=== PATIENT | female | born 1945 | race Caucasian/White ===

== ENCOUNTER → 2016-09-26 | Outpatient (CLI) | payer OTHER ==
--- NOTE | 2016-09-26 16:24 | MAMMOGRAPHY REPORT ---
BILATERAL DIGITAL SCREENING MAMMOGRAM WITH CAD: 09/26/2016 CLINICAL HISTORY: Routine screening. Patient has no complaints. TECHNIQUE: Bilateral CC and MLO views were obtained. Current study was also evaluated with a Comput er Aided Detection (CAD) system. COMPARISON: Comparison is made to exams dated: 09/14/2015 mammogram, 09/09/2014 mammogram - [facility], 03/25/2012 mammogram, 08/23/2011 mammogram, and 07/09/2010 mammogram. BREAST COMPOSITION: The tissue of both breasts is heterogeneously dense, which may obscure small ma sses. FINDINGS: There are a few scattered benign-appearing calcifications in the left breast, and stable g roupings of microcalcifications in the 12:00 left breast, and central right breast, that are unchang ed in appearance dating back to at least 2011, therefore likely benign. No new suspicious mass, arc hitectural distortion or cluster of microcalcifications is seen. IMPRESSION: ACR BI-RADS CATEGORY 1: NEGATIVE There is no mammographic evidence of malignancy. A 1 year screening mammogram is recommended. The p atient will receive written notification of the results. Approximately 10% of breast cancers are not detected with mammography. A negative mammographic repor t should not delay biopsy if a clinically suggestive mass is present. Kristen Moon M.D. ay/:09/26/2016 15:12:37 Production Statistical Clerk: Bhanu BRANDON)(Terri), [facility] letter sent: Normal 1/2 BI-RADS Code: ACR BI-RADS Category 1: Negative
== END | disposition home or self-care (01) ==
LOC: C.MAMM 12:57
PROVIDERS: ATTEND Family Medicine
DX: Z12.31 Encounter for screening mammogram for malignant neoplasm of breast (principal); M81.0 Age-related osteoporosis without current pathological fracture

== ENCOUNTER → 2017-04-27 | Outpatient (CLI) | payer OTHER ==
[2017-04-27 12:50] LABS: BLOOD UREA NITROGEN 23 mg/dl (7-18); BUN/CREATININE RATIO 29.8 (10-20); CALCIUM 9.6 mg/dl (8.5-10.1); CARBON DIOXIDE 30 mmol/L (21-32); CHLORIDE 102 mmol/L (98-107); CREATININE 0.77 mg/dl (0.60-1.20); GLUCOSE 94 mg/dl (70-99); POTASSIUM 4.7 mmol/L (3.5-5.1); SODIUM 137 mmol/L (136-145)
[2017-04-27 12:53] LABS: CHOLESTEROL 203 mg/dl (0-200); CHOLESTEROL/HDL RATIO 2.5; HDL CHOLESTEROL 81 mg/dl; LDL CHOLESTEROL CALCULATED 105 mg/dl; TRIGLYCERIDES 84 mg/dl (0-150); VERY LOW DENSITY LIPOPROT CALC 17 mg/dl
[2017-04-27 13:24] LABS: CALCIUM URINE 6.1 mg/dl
[2017-04-28 14:50] LABS: ALBUMIN 4.6 G/DL (3.8-4.8); GAMMA GLOBULIN 0.9 G/DL (0.8-1.7); TOTAL PROTEIN 7.3 G/DL (6.2-8.3)
== END | disposition home or self-care (01) ==
LOC: C.LABMFLN 09:37
PROVIDERS: ATTEND Family Medicine
DX: M81.0 Age-related osteoporosis without current pathological fracture (principal); K90.0 Celiac disease; E61.8 Deficiency of other specified nutrient elements; E55.9 Vitamin D deficiency, unspecified; I10 Essential (primary) hypertension

== ENCOUNTER → 2017-09-28 | Outpatient (CLI) | payer OTHER ==
--- NOTE | 2017-10-02 08:08 | MAMMOGRAPHY REPORT ---
BILATERAL DIGITAL SCREENING MAMMOGRAM TOMOSYNTHESIS WITH CAD: 09/28/2017 CLINICAL HISTORY: Routine screening. Patient has no complaints. TECHNIQUE: Breast tomosynthesis in addition to standard 2D mammography was performed. Current study was also evaluated with a Computer Aided Detection (CAD) system. COMPARISON: Comparison is made to exams dated: 09/26/2016 mammogram, 09/14/2015 mammogram, 09/09/2014 ma mmogram - , 03/25/2012 mammogram, 08/23/2011 mammogram, and 07/09/2010 mamm ogram. BREAST COMPOSITION: The tissue of both breasts is heterogeneously dense, which may obscure small mas ses. FINDINGS: No suspicious masses, calcifications, or areas of architectural distortion are noted in ei ther breast. There has been no significant interval change compared to prior exams. Bilateral benign -appearing calcifications are not significantly changed. IMPRESSION: ACR BI-RADS CATEGORY 2: BENIGN There is no mammographic evidence of malignancy. A 1 year screening mammogram is recommended. The pa tient will receive written notification of the results. Approximately 10% of breast cancers are not detected with mammography. A negative mammographic report should not delay biopsy if a clinically suggestive mass is present. Enid Noguera M.D. /:09/28/2017 14:57:37 Time Stamp Assembler: Ni BRANDON)(Terri), letter sent: Normal 1/2 BI-RADS Code: ACR BI-RADS Category 2: Benign
== END | disposition home or self-care (01) ==
LOC: C.MAMM 09:41
PROVIDERS: ATTEND Family Medicine
DX: Z12.31 Encounter for screening mammogram for malignant neoplasm of breast (principal)

== ENCOUNTER → 2018-01-18 | Outpatient (CLI) | payer OTHER ==
[2018-01-18 13:19] LABS: URIC ACID 4.1 mg/dl (2.6-7.2)
[2018-01-22 04:35] LABS: PARVOVIRUS IgM INDEX 0.2 (<0.9)
== END | disposition home or self-care (01) ==
LOC: C.LABMFLN 10:41
PROVIDERS: ATTEND Internal Medicine Rheumatology
DX: M25.549 Pain in joints of unspecified hand (principal)

== ENCOUNTER 2024-07-27 17:17 | Inpatient (IN) ==
[2024-07-27 18:08] LABS: Basophils # (auto) 0.03 K/uL (0.00-0.20); Basophils % (auto) 0.3 %; Eosinophils # (auto) 0.03 K/uL (0.00-0.50); Eosinophils % (auto) 0.3 %; Hematocrit (blood only) 37.1 % (37.0-47.0); Hemoglobin 12.6 g/dl (12.0-16.0); Immature Granulocytes # (auto) 0.03 K/uL (0.01-0.20); Immature Granulocytes % (auto) 0.3 %; Lymphocytes # (auto) 1.85 K/uL (1.20-3.40); Lymphocytes % (auto) 16.1 %; Mean Corpuscular Hemoglobin 31.3 pg (25.0-34.0); Mean Corpuscular Volume 92.3 fL (80.0-100.0); Mean Platelet Volume 9.3 fL (9.4-12.4); Monocytes # (auto) 1.31 K/uL (0.11-0.59); Monocytes % (auto) 11.4 %; Neutrophils # (auto) 8.24 K/uL (1.40-6.50); Neutrophils % (auto) 71.6 %; Platelet Count 394 K/uL (130-400); RDW Coefficient of Variation 11.8 % (11.5-14.5); Red Blood Count 4.02 M/uL (4.20-5.40); White Blood Count 11.49 K/ul (4.8-10.8)
[2024-07-27 18:19] LABS: Partial Thromboplastin Ratio 1.1; Partial Thromboplastin Time 29 Seconds (21-31)
--- NOTE | 2024-07-27 18:27 | Emergency Department Note ---
Impression & Plan Pulmonary embolism, Left-sided chest pain, Pleural effusion ED Provider Note NAME: LEVI BHAGAT AGE: 78 SEX: Female INFORMANT: Patient ED PROVIDER(S): Mio Pennington MD CHIEF COMPLAINT: Left rib pain PLAN: Disposition: Admit Outpatient prescription management: none Referral: None MEDICAL DECISION MAKING: Patient presented because of left sided rib pain. No trauma. She had a benign abdominal examination. Workup was initiated. Twelve-lead ECG reveals a sinus rhythm without ischemia. Patient had mild leukocytosis. Chemistry panel was unremarkable. Troponin negative. Patient underwent CT imaging of the chest after chest x-ray revealed left-sided effusion. CT imaging was concerning for effusion as well as pulmonary embolism per radiology. Atelectasis was also noted. Patient noted more pain after initially declining analgesia. Hypercoagulability labs were ordered. Patient was treated with Zofran and Dilaudid. She had transient dip in her blood pressure but felt much better and that resolved on reassessment. Consultation was made with Dr. Calderon Li of the [facility] service. Patient was evaluated in the ER for further management. We did discuss anticoagulation and he did request heparin. This was ordered. Care/management discussed with: healthcare project manager Level of care consideration(s): After review of the information above and other included data, I feel the patient requires escalation of care to admission Triage Nursing notes: reviewed and agree them. Vital Signs: reviewed and remarkable for no significant abnormalities Additional History obtained from: none Chronic Medical/Social Conditions affecting care: none Prior/ Outside/ External records reviewed: none Differential Diagnosis: Pleurisy, pneumonia, PE ardiac ischemia, aortic dissection, pneumothorax, pericarditis, myocarditis, esophageal rupture, GERD, cholecystitis, pancreatitis, musculoskeletal, as well as other pathologies. Diagnostics, independently interpreted by me: ECG: Twelve-lead ECG reveals a sinus rhythm with PACs at [address] No ST elevation or depression. Cardiac Monitoring: Cardiac monitoring ordered by me: The patient was placed on continuous cardiac monitoring and observed. It revealed a normal sinus rhythm at 79 bpm. Medical decision rules: none Imaging studies: Chest x-ray and CT scan as above. Effusion and pulmonary embolism. HPI: 78 year old Female arrives for evaluation of pain behind her left anterior ribs. This started 4 days ago and is persisting. Patient notes pain does get up to 9 out of 10 and is worse with taking a deep breath. Does note some pain with movement. Pain does radiate towards the left shoulder. The patient also notes the following associated symptoms, mild shortness of breath. The patient has found no relieving factors. Current pain is rated as 9/10. Patient declined analgesia. Pt denies LOC, headache, fevers, chills, diaphoresis, visual changes, neck pain, nausea, vomiting, flank pain, right sided or lower abdominal pain, back pain, melena, hematochezia, urinary symptoms, numbness, weakness, lymphadenopathy, rash, or other complaints.. PAST MEDICAL HISTORY: See Below, celiac PAST SURGICAL HISTORY: See Below, SOCIAL HISTORY: See Below, HOME MEDICATIONS: See Below ALLERGIES: See Below VITALS: See Below PHYSICAL EXAMINATION: GENERAL: Awake, alert, uncomfortable-appearing, in no distress HENT: Normocephalic, atraumatic. Oropharynx unremarkable. EYES: Normal conjunctiva. Sclera non-icteric. NECK: Inspection normal. Non-tender. Supple. No nuchal rigidity. FROM. No masses. RESPIRATORY: Clear to auscultation. No wheezes. No rales. Normal respiratory effort. CARDIAC: Normal rate. Normal rhythm. No murmurs. No rubs. Extremities warm and well perfused. Pulses equal. No JVD. GI: Soft, non-distended. No tenderness to palpation. No rebound or guarding. No masses. RECTAL: Deferred. MUSCULOSKELETAL: Atraumatic. Chest examination reveals no tenderness. The back is symmetrical on inspection without obvious abnormality. There is no CVA tenderness to palpation. No joint edema. LOWER EXTREMITIES: Calves are equal size bilaterally and non-tender. Trace edema. No discoloration. NEURO: Normal sensorium. No sensory or motor deficits noted. SKIN: No rash or jaundice noted. PROCEDURES: none CRITICAL CARE: I have personally spent 40 minutes of critical care time in the direct management of this patient. This includes bedside care, interpretation of diagnostic studies, and testing, discussion with consultants, patient, and family members, and other required patient management activities. These minutes are in excess of all separately billable procedures. OBSERVATION NOTE: none Past Med/Surg History Problem List (Updated 07/28/24 @ 02:46 by Mio Pennington MD) Pleural effusion (Acute) Pulmonary embolism (Acute) Pulmonary embolism Pleural effusion Left-sided chest pain (Acute) Hyponatremia Left ear hearing loss Otalgia, left ear Neutropenia Hypercalcemia Osteoporosis Medicare annual wellness visit, subsequent Vitamin D insufficiency Chronic cough Dyspnea Close exposure to COVID-19 virus Intermittent palpitations Intermittent palpitations Vitamin D deficiency (Acute) Osteoporosis (Acute) Chronic back pain (Acute) Celiac disease (Acute) Barretts esophagus (Acute) Benign essential hypertension (Acute) Atopic dermatitis (Acute) Dyslipidemia Osteoarthritis of thumb (Acute) Uterine fibroid (Acute) Medical History No pertinent past medical history Surgical History History of tonsillectomy and adenoidectomy Family History Other No pertinent family history Social History Smoking Status: Never smoker Hx Alcohol Use: No Hx Substance Use: No Preferred Language: French Visual Impairment: Limited Hearing Ability: Normal marital status: Current Living Situation: Spouse current occupational status: retired How many Children do You have: 2 Feels Safe at Home: Yes Childhood Exposure to Second-Hand Smoke: Yes Diet: gluten free caffeine: Yes Dental Care, Regularly: Yes Physical Activity Frequency: 3-4 Times per Week Physical Activity Frequency Comment: walking Seatbelt Use: always Sunscreen Use: No Allergies Allergies Allergy/AdvReac Type Severity Reaction Status Date / Time amoxicillin Allergy Verified 04/29/24 09:59 hydrochlorothiazide AdvReac Intermediate Hyponatremi Verified 05/20/24 16:55 a Home Meds Home Medications Medication Instructions Recorded Confirmed cholecalciferol (vitamin D3) 50 2,000 units PO DAILY #30 tabs 02/01/19 07/27/24 mcg (2,000 unit) tablet vitamins A,C,V-tjlf-ftdtqh 4,296 1 cap PO BID 02/01/19 07/27/24 mcg-226 mg-90 mg capsule (PreserVision AREDS) multivitamin (Daily Multi-Vitamin 1 tab PO DAILY 04/23/20 07/27/24 tablet) acetaminophen 650 mg 1,300 mg PO HS PRN Pain 07/09/20 07/27/24 tablet,extended release tramadol 50 mg tablet 50 mg PO TID PRN Pain 04/26/23 07/27/24 Previous Rx's Medication Instructions Recorded estradiol 10 mcg vaginal insert 10 mcg vaginal .COMPLEX #24 inserts 06/13/23 triamcinolone acetonide 0.1 % 1 applic topical BID PRN atopic 08/28/23 topical cream dermatitis #30 grams losartan 100 mg tablet 100 mg PO DAILY #90 tabs 02/23/24 pantoprazole 20 mg tablet,delayed 20 mg PO DAILY #90 tabs 05/08/24 release metoprolol tartrate 50 mg tablet 50 mg PO BID #180 tabs 05/22/24 hydrochlorothiazide 12.5 mg tablet 12.5 mg PO QAM #30 tabs 07/02/24 Results & Data (ED) Vital Signs Vital Signs - 24 hr 07/27/24 17:25 07/27/24 18:44 07/27/24 18:44 Temperature 36.9 C Temperature Source Temporal Artery Scan Pulse Rate 79 74 Pulse Rate [Apical] 67 Pulse Rate from SpO2 Sensor Respiratory Rate 18 18 Respiratory Effort / Characteristics Non-Labored Non-Labored Spontaneous Respiratory Depth Normal Normal Respiratory Pattern Regular Blood Pressure 172/90 H Blood Pressure [Right Arm] 118/69 Blood Pressure Mean 117 Blood Pressure Mean [Right Arm] 85 Pulse Oximetry 96 96 Oxygen Delivery Method Room Air Room Air Sepsis Recent Fever Within 48 Hours No Sepsis New/Unexplained Change in Mental Status No Sepsis Action Taken by Nursing No Action Required 07/27/24 18:47 07/27/24 19:17 07/27/24 19:42 Temperature Temperature Source Pulse Rate 75 82 Pulse Rate [Apical] 80 Pulse Rate from SpO2 Sensor 76 76 Respiratory Rate 28 H 24 24 Respiratory Effort / Characteristics Respiratory Depth Respiratory Pattern Blood Pressure 159/81 H 151/91 H Blood Pressure [Right Arm] 158/79 H Blood Pressure Mean 107 111 Blood Pressure Mean [Right Arm] 105 Pulse Oximetry 97 93 94 Oxygen Delivery Method Room Air Sepsis Recent Fever Within 48 Hours Sepsis New/Unexplained Change in Mental Status Sepsis Action Taken by Nursing 07/27/24 19:42 07/27/24 19:48 07/27/24 20:03 Temperature Temperature Source Pulse Rate 78 77 Pulse Rate [Apical] Pulse Rate from SpO2 Sensor 79 78 Respiratory Rate 20 24 Respiratory Effort / Characteristics Respiratory Depth Respiratory Pattern Blood Pressure 158/79 H 161/89 H Blood Pressure [Right Arm] Blood Pressure Mean 105 113 Blood Pressure Mean [Right Arm] Pulse Oximetry 95 94 Oxygen Delivery Method Room Air Sepsis Recent Fever Within 48 Hours Sepsis New/Unexplained Change in Mental Status Sepsis Action Taken by Nursing 07/27/24 20:32 07/27/24 20:42 07/27/24 21:03 Temperature Temperature Source Pulse Rate 64 72 71 Pulse Rate [Apical] Pulse Rate from SpO2 Sensor 71 73 Respiratory Rate 19 28 H 24 Respiratory Effort / Characteristics Respiratory Depth Respiratory Pattern Blood Pressure 88/48 L 105/59 L 125/69 Blood Pressure [Right Arm] Blood Pressure Mean 58 74 87 Blood Pressure Mean [Right Arm] Pulse Oximetry 94 96 98 Oxygen Delivery Method Sepsis Recent Fever Within 48 Hours Sepsis New/Unexplained Change in Mental Status Sepsis Action Taken by Nursing Laboratory Data 07/27/24 17:50 07/27/24 17:50 Lab Results 07/27/24 07/27/24 Range/Units 17:50 18:40 WBC 11.49 H (4.8-10.8) K/ul RBC 4.02 L (4.20-5.40) M/uL Hgb 12.6 (12.0-16.0) g/dl Hct 37.1 (37.0-47.0) % MCV 92.3 (80.0-100.0) fL MCH 31.3 (25.0-34.0) pg MCHC 34.0 (32.0-36.0) g/dL RDW Std Deviation 40.0 (36.4-46.3) fL RDW Coeff of Alina 11.8 (11.5-14.5) % Plt Count 394 (130-400) K/uL MPV 9.3 L (9.4-12.4) fL Immature Gran % (Auto) 0.3 % Neut % (Auto) 71.6 % Lymph % (Auto) 16.1 % [place] % (Auto) 11.4 % Eos % (Auto) 0.3 % Baso % (Auto) 0.3 % Neut # (Auto) 8.24 H (1.40-6.50) K/uL Lymph # (Auto) 1.85 (1.20-3.40) K/uL [place] # (Auto) 1.31 H (0.11-0.59) K/uL Eos # (Auto) 0.03 (0.00-0.50) K/uL Baso # (Auto) 0.03 (0.00-0.20) K/uL Immature Gran # (Auto) 0.03 (0.01-0.20) K/uL APTT 29 (21-31) Seconds PTT Ratio 1.1 Sodium 127 L (136-145) mmol/L Potassium 4.3 (3.5-5.1) mmol/L Chloride 92 L (98-107) mmol/L Carbon Dioxide 26 (21-32) mmol/L Anion Gap 9 (3-11) BUN 15 (6-23) mg/dl Creatinine 0.65 (0.6-1.2) mg/dl Est Cr Clr Drug Dosing 61.0 ml/min eGFR 91.19 BUN/Creatinine Ratio 23.1 H (10-20) Glucose 110 H (70-99(Fasting)) mg/dl Calcium 10.1 (8.6-10.3) mg/dl Total Bilirubin 0.6 (0.2-1.0) mg/dl AST 17 (13-39) U/L ALT 14 (7-52) U/L Alkaline Phosphatase 86 (34-104) U/L Troponin I High Sens 6.7 (0-14) pg/ml Total Protein 8.0 (6.0-8.3) gm/dl Albumin 4.6 (3.4-5.0) gm/dl Globulin 3.4 (2.5-4.0) gm/dl Albumin/Globulin Ratio 1.4 (0.9-2) Urine Color Yellow Urine Appearance Clear (Clear) Urine pH 7.0 (4.5-7.5) Ur Specific Sixes 1.015 (1.000-1.030) Urine Protein Negative (Negative) Urine Glucose (UA) Negative (Negative) Urine Ketones 1+ H (Negative) Urine Blood Negative (Negative) Urine Nitrite Negative (Negative) Urine Bilirubin Negative (Negative) Urine Urobilinogen Negative (Negative) Ur Leukocyte Esterase 1+ H (Negative) Urine WBC (Auto) 0-5 (0-5) /hpf Urine RBC (Auto) 0-2 (0-2) /hpf U Hyaline Cast (Auto) 0-2 (0-2) /lpf U Epithel Cells (Auto) 0-2 (0-2) /hpf Urine Bacteria (Auto) None Seen (None Seen) Administered Medications Heparin Sodium/Dextrose (Heparin 63753 Unit/500 Ml D5w) 25,000 units in 500 mls @ 13 mls/hr IV .Q24H AKANKSHA; Protocol Stop: 08/26/24 20:44 Last Admin: 07/27/24 21:03 Dose: 650 units/hr, 13 mls/hr Documented By: FRANCISCA Co-signed By: MARGE Metoprolol Tartrate (Metoprolol Tartrate 50 Mg Tab) 50 mg PO BID AKANKSHA Stop: 08/27/24 01:12 Last Admin: 07/28/24 02:31 Dose: 50 mg Documented By: ISABEL Morphine Sulfate (Morphine Sulfate 2 Mg/Ml Carp) 1 mg IV Q3H PRN PRN Reason: Severe Pain (Scale 7, 8, 9,10) Stop: 08/10/24 21:08 Last Admin: 07/28/24 02:31 Dose: 1 mg Documented By: Admin: 07/27/24 22:24 Dose: 1 mg Documented By: FRANCISCA Multivitamins/Minerals (Cerovite Adv Formula Tab) 1 tab PO BID AKANKSHA Stop: 08/27/24 01:12 Last Admin: 07/28/24 02:31 Dose: Not Given Documented By: ISABEL Discontinued Medications Heparin Sodium (Porcine) (Heparin Sod (Porcine) 1000 Unit/Ml) 1 units IV NOW ONE Stop: 07/27/24 20:34 Last Admin: 07/27/24 21:02 Dose: 2,000 units Documented By: FRANCISCA Co-signed By: MARGE Heparin Sodium/Dextrose (Heparin Iv Adult Wt-Based Low-Dose W/ Initial Bolus Protocol) 1 each IV NOW STA; Protocol Stop: 07/27/24 20:18 Last Admin: 07/27/24 21:04 Dose: Not Given Documented By: FRANCISCA Hydromorphone HCl (Hydromorphone Inj 0.5 Mg/0.5 Ml Syr) 0.5 mg IV Q15M PRN PRN Reason: Pain Stop: 08/10/24 20:00 Last Admin: 07/27/24 20:14 Dose: 0.5 mg Documented By: FRANCISCA Sodium Chloride (Nss) 1,000 mls @ 999 mls/hr IV .Q1H1M ONE Stop: 07/27/24 21:32 Last Infusion: 07/27/24 22:54 Dose: Infused Documented By: Admin: 07/27/24 20:54 Dose: 999 mls/hr Documented By: FRANCISCA Ioversol (Optiray 320 125ml) 118 ml IV ONCE ONE Stop: 07/27/24 19:12 Last Admin: 07/27/24 19:11 Dose: 118 ml Documented By: OBED Lidocaine (Lidocaine 5% 1 Patch) 1 patch TD NOW STA Stop: 07/27/24 21:05 Last Admin: 07/27/24 22:24 Dose: 1 patch Documented By: FRANCISCA Metoprolol Tartrate (Metoprolol Tartrate 50 Mg Tab) 50 mg PO NOW STA Stop: 07/27/24 20:04 Last Admin: 07/27/24 20:18 Dose: 50 mg Documented By: FRANCISCA Ondansetron HCl (Ondansetron Inj 2 Mg/Ml 2 Ml Vial) 4 mg IV NOW STA Stop: 07/27/24 20:02 Last Admin: 07/27/24 20:14 Dose: 4 mg Documented By: FRANCISCA Pantoprazole Sodium (Pantoprazole 40 Mg Tab) 40 mg PO NOW STA Stop: 07/27/24 20:58 Last Admin: 07/27/24 22:23 Dose: 40 mg Documented By: FRANCISCA Imaging Data Radiologist's Impression: Chest X-Ray 07/27/24 17:31 EXAM: XR chest 1V portable CLINICAL HISTORY: Left chest pain TECHNIQUE: An X-ray image of the chest is obtained in AP projection. COMPARISON: prior 07/28/2021 FINDINGS: Pulmonary Parenchyma: left-sided moderate pleural effusion Heart and Mediastinum: Heart size and shape are normal. possible right-sided hilar opacity Bony Thorax: Bony thorax appears intact without fractures or deformities. Soft Tissues: Soft tissues overlying the chest wall are unremarkable. IMPRESSION: 1. left-sided moderate pleural effusion (newly developed) 2. possible right-sided hilar opacity (patient is rotated), possible vascular shadow however the possiblty of underlying masses can't be excluded. New 3. further assessment by CT is recommended Electronically signed by Sadia Cano 07-27-2024 7:32 PM Chest CTA 07/27/24 18:13 HISTORY: Left lower chest pain. TECHNIQUE: Helical CT angiography of the chest was performed following uneventful administration of 118 mL of Optiray 320 IV contrast. Images are presented in axial, sagittal, coronal reformats. Coronal and sagittal 3D MIP reconstructions are also provided. COMPARISON: None. FINDINGS: Study is of diagnostic quality for evaluation of the pulmonary arteries to the level of the segmental vessels. An acute segmental pulmonary embolism is seen involving the basal left lower lobe on series 2 image 53. No large or central PE is identified. Thoracic aorta is normal in caliber. No evidence of aortic dissection or acute aortic process. Mild atherosclerotic vascular disease. No coronary artery calcifications. Cardiomegaly. No significant pericardial effusion. Nonspecific mildly enlarged mediastinal and hilar lymph nodes may be reactive.. Included thyroid gland is unremarkable. Thoracic esophagus is unremarkable. The included upper abdomen is unremarkable. The soft tissues of the chest wall are unremarkable. Moderate layering left pleural effusion. Patchy airspace opacities involving the left greater than right lung base favoring atelectasis. No pneumothorax. Central tracheobronchial tree is patent. No acute osseous abnormality. IMPRESSION: 1. Positive for acute pulmonary embolism with an acute segmental PE to the basilar left lower lobe on series 4 image 104. No large or central PE. No right heart strain. 2. Moderate left pleural effusion. Patchy areas of airspace opacity involving left greater than right lung base may representcombination of pneumonia and atelectasis. Mildly enlarged mediastinal and hilar lymph nodes may be reactive. Follow-up chest CT with contrast is recommended in 1 to 2 months to evaluate for resolution. 3. Cardiomegaly. 4. Additional chronic and/or incidental findings as detailed above * Findings were discussed with the ordering provider Dr. Mio Mccartney via telephone at 7:35 PM. Electronically signed by Mio Garcia 07-27-2024 7:40 PM Venous Doppler Study 07/27/24 21:06 Exam(s): US VENOUS BILATERAL LOWER EXTREMITIES EXAM: US Duplex Bilateral Lower Extremities Veins CLINICAL HISTORY: Reason for exam: PE. TECHNIQUE: Real-time duplex ultrasound scan of the bilateral lower extremity veins integrating B-mode two-dimensional vascular structure, Doppler spectral analysis, color flow Doppler imaging and compression. COMPARISON: No relevant prior studies available. FINDINGS: Right deep veins: No DVT in the right common femoral, femoral, proximal deep femoral or popliteal veins. The veins demonstrate normal color flow, are normally compressible, with normal phasic flow and/or augmentation response. Right superficial veins: No thrombus in the visualized right great saphenous vein. Left deep veins: No DVT in the left common femoral, femoral, proximal deep femoral or popliteal veins. The veins demonstrate normal color flow, are normally compressible, with normal phasic flow and/or augmentation response. Left superficial veins: No thrombus in the visualized left great saphenous vein. Soft tissues: No acute findings. No popliteal cyst. IMPRESSION: No ultrasound evidence of deep venous thrombosis in the lower extremities. . Electronically signed by: Genaro Mejia MD 07/27/24 22:52 PM Discharge Plan Visit Data Chief Complaint: Abdominal Pain Stated Complaint: ABD PAIN, SOB, RAD UP TO NECK ED Provider: Mio Pennington Discharge Problem: Pulmonary embolism, Left-sided chest pain, Pleural effusion Discharge Instructions Interventions: ED Discharge Assessment Last Done: 07/28/24 01:14
[2024-07-27 18:33] LABS: Troponin I High Sensitivity 6.7 pg/ml (0-14)
[2024-07-27 18:46] LABS: Albumin Level 4.6 gm/dl (3.4-5.0); Bilirubin,Total 0.6 mg/dl (0.2-1.0); Calcium 10.1 mg/dl (8.6-10.3); Potassium 4.3 mmol/L (3.5-5.1)
[2024-07-27 18:52] LABS: Albumin Globulin Ratio 1.4 (0.9-2); BUN Creatinine Ratio 23.1 (10-20); Globulin 3.4 gm/dl (2.5-4.0)
[2024-07-27 19:08] LABS: Appearance Urine Clear (Clear); Bacteria Urine Automated None Seen (None Seen); Bilirubin Urine Negative (Negative); Blood Urine Negative (Negative); Cast Urine Automated 0-2 /lpf (0-2); Color Urine Yellow; Epithelial Cell Urine Auto 0-2 /hpf (0-2); Glucose Urine UA Negative (Negative); Ketones Urine 1+ (Negative); Leukocyte Esterase Urine 1+ (Negative); Nitrite Urine Negative (Negative); Protein Urine Negative (Negative); RBC Urine Automated 0-2 /hpf (0-2); Specific Gravity Urine 1.015 (1.000-1.030); Urobilinogen Urine Negative (Negative); WBC Urine Automated 0-5 /hpf (0-5)
[2024-07-27] MEDS: OPTIRAY 320 125ml IV ONE (19:11)
--- NOTE | 2024-07-27 19:32 | XRay Report ---
EXAM: XR chest 1V portable CLINICAL HISTORY: Left chest pain TECHNIQUE: An X-ray image of the chest is obtained in AP projection. COMPARISON: prior 07/28/2021 FINDINGS: Pulmonary Parenchyma: left-sided moderate pleural effusion Heart and Mediastinum: Heart size and shape are normal. possible right-sided hilar opacity Bony Thorax: Bony thorax appears intact without fractures or deformities. Soft Tissues: Soft tissues overlying the chest wall are unremarkable. IMPRESSION: 1. left-sided moderate pleural effusion (newly developed) 2. possible right-sided hilar opacity (patient is rotated), possible vascular shadow however the possiblty of underlying masses can't be excluded. New 3. further assessment by CT is recommended Electronically signed by Sadia Cano 07-27-2024 7:32 PM
--- NOTE | 2024-07-27 19:40 | CT Scan Report ---
HISTORY: Left lower chest pain. TECHNIQUE: Helical CT angiography of the chest was performed following uneventful administration of 118 mL of Optiray 320 IV contrast. Images are presented in axial, sagittal, coronal reformats. Coronal and sagittal 3D MIP reconstructions are also provided. COMPARISON: None. FINDINGS: Study is of diagnostic quality for evaluation of the pulmonary arteries to the level of the segmental vessels. An acute segmental pulmonary embolism is seen involving the basal left lower lobe on series 2 image 53. No large or central PE is identified. Thoracic aorta is normal in caliber. No evidence of aortic dissection or acute aortic process. Mild atherosclerotic vascular disease. No coronary artery calcifications. Cardiomegaly. No significant pericardial effusion. Nonspecific mildly enlarged mediastinal and hilar lymph nodes may be reactive.. Included thyroid gland is unremarkable. Thoracic esophagus is unremarkable. The included upper abdomen is unremarkable. The soft tissues of the chest wall are unremarkable. Moderate layering left pleural effusion. Patchy airspace opacities involving the left greater than right lung base favoring atelectasis. No pneumothorax. Central tracheobronchial tree is patent. No acute osseous abnormality. IMPRESSION: 1. Positive for acute pulmonary embolism with an acute segmental PE to the basilar left lower lobe on series 4 image 104. No large or central PE. No right heart strain. 2. Moderate left pleural effusion. Patchy areas of airspace opacity involving left greater than right lung base may representcombination of pneumonia and atelectasis. Mildly enlarged mediastinal and hilar lymph nodes may be reactive. Follow-up chest CT with contrast is recommended in 1 to 2 months to evaluate for resolution. 3. Cardiomegaly. 4. Additional chronic and/or incidental findings as detailed above * Findings were discussed with the ordering provider Dr. Mio Mccartney via telephone at 7:35 PM. Electronically signed by Mio Garcia 07-27-2024 7:40 PM
[2024-07-27] MEDS: HYDROmorphone INJ 0.5 MG/0.5 ML SYR IV PRN (20:14)
[2024-07-27] MEDS: ONDANSETRON INJ 2 MG/ML 2 ML VIAL IV STA (20:14)
[2024-07-27] MEDS: METOPROLOL TARTRATE 50 MG TAB PO STA (20:18)
[2024-07-27] MEDS: SODIUM CHLORIDE 0.9% 1,000 ML IV ONE (20:54)
[2024-07-27] MEDS: HEPARIN SOD (PORCINE) 1000 UNIT/ML IV ONE (21:02)
[2024-07-27] MEDS: HEPARIN 25000 UNIT/500 ML D5W 25,000 UNITS/500 ML BAG IV SCH (21:03)
[2024-07-27] MEDS: Heparin IV Adult Wt-Based Low-Dose w/ INITIAL Bolus Protocol IV STA (21:04)
--- NOTE | 2024-07-27 21:10 | History & Physical Report ---
Date of Service July 27, 2024 Assessment & Plan (1) Hyponatremia: (2) Pleural effusion: (3) Pulmonary embolism: (4) Left-sided chest pain: Plan The patient is a 78-year-old female with a past medical history including hyponatremia, vitamin D insufficiency, history of palpitations, Lewis's esophagus, celiac disease, benign essential hypertension, atopic dermatitis, dyslipidemia, thumb osteoarthritis, and uterine fibroid. The patient presents to the emergency department with complaint of 4 days of left anterior rib cage pain, worse with deep inspiration. She denies any recent travels, sick exposures. She does report that the pain periodically goes up into her left wes ulder. She had no previous occurrence of these types of symptoms. She presents to the emergency department this evening due to persistence and worsening of the pain. She denies any pain and/or swelling, in either leg. Workup in the emergency department included a chest x-ray suggestive of moderate left pleural effusion. CT angiography PE protocol was significant for left lower lobe pulmonary embolism. Patient is also referred to the [facility] for further evaluation and treatment. Of note, patient does report upon questioning, that her mother did have a clot when she was younger. #Pulmonary embolism left lower lobe- As noted on CTA PE protocol Hypercoagulable workup ordered, as patient reports a family history of her mother having had a clot at a young age. Patient reports that mammograms are up-to-date, assess colonoscopy Start heparin drip per protocol. Will continue heparin drip Until determine whether patient will get a thoracentesis to adjust pleural effusion If no thoracentesis planned, then patient can be converted to oral anticoagulation in the a.m. Lower extremity venous Doppler negative for DVT #Moderate pleural effusion left lower lobe- New compared to previous Patient is not a candidate for diuresis at this point May benefit from a thoracentesis Continue heparin drip for now, which can be stopped if anticipated thoracentesis #Pain management- Patient did receive Dilaudid 0.5 IV x 1 from the ED, and developed an acute drop of blood pressure to systolic 80, and became somewhat disoriented. Acetaminophen 650 mg by mouth every 6 hours as needed for mild pain or fever Patient presently takes tramadol 50 mg p.o. 3 times daily as needed. Will change to 50 mg every 4 hours as needed moderate pain Morphine sulfate 1 mg IV every 3 hours as needed for severe pain Started Lidoderm patch over lower rib cage area #Hyponatremia/intermittent cough/hypertension- It has been noted the patient she has been hyponatremic secondary to HCTZ Will hold HCTZ and follow sodium levels, with present level being 127, and range 127-132 Patient has had intermittent cough over the past number of months Will hold losartan She has been on amlodipine in the past, which caused her feet to swell. Her PCP has suggested felodipine 2.5 mg, which would be a good option. At this point, her blood pressure is reasonably good History of Present Illness Chief Complaint: The patient presents to the emergency department with complaint of 4 days of left anterior rib cage pain, worse with deep inspiration. She denies any recent travels, sick exposures. She does report that the pain periodically goes up into her left shoulder. She had no previous occurrence of these types of symptoms. She presents to the emergency department this evening due to persistence and worsening of the pain. She denies any pain and/or swelling, in either leg. Primary Care Provider: Yobani Sanders MD The patient is a 78-year-old female with a past medical history including hyponatremia, vitamin D insufficiency, history of palpitations, Lewis's esophagus, celiac disease, benign essential hypertension, atopic dermatitis, dyslipidemia, thumb osteoarthritis, and uterine fibroid. The patient presents to the emergency department with complaint of 4 days of left anterior rib cage pain, worse with deep inspiration. She denies any recent travels, sick exposures. She does report that the pain periodically goes up into her left shoulder. She had no previous occurrence of these types of symptoms. She presents to the emergency department this evening due to persistence and worsening of the pain. She denies any pain and/or swelling, in either leg. Workup in the emergency department included a chest x-ray suggestive of moderate left pleural effusion. CT angiography PE protocol was significant for left l ower lobe pulmonary embolism. Patient is also referred to the [facility] for further evaluation and treatment. Allergies Allergy/AdvReac Type Severity Reaction Status Date / Time amoxicillin Allergy Verified 04/29/24 09:59 hydrochlorothiazide AdvReac Intermediate Hyponatremi Verified 05/20/24 16:55 a Home Medications Medication Instructions Recorded Confirmed Type cholecalciferol (vitamin D3) 50 2,000 units PO DAILY #30 tabs 02/01/19 07/27/24 History mcg (2,000 unit) tablet vitamins A,C,Y-[id number]-[id number] 4,296 1 cap PO BID 02/01/19 07/27/24 History mcg-226 mg-90 mg capsule (PreserVision AREDS) multivitamin (Daily Multi-Vitamin 1 tab PO DAILY 04/23/20 07/27/24 History tablet) acetaminophen 650 mg 1,300 mg PO HS PRN Pain 07/09/20 07/27/24 History tablet,extended release tramadol 50 mg tablet 50 mg PO TID PRN Pain 04/26/23 07/27/24 History estradiol 10 mcg vaginal insert 10 mcg vaginal .COMPLEX #24 inserts 06/13/23 07/27/24 Rx triamcinolone acetonide 0.1 % 1 applic topical BID PRN atopic 08/28/23 07/27/24 Rx topical cream dermatitis #30 grams losartan 100 mg tablet 100 mg PO DAILY #90 tabs 02/23/24 07/27/24 Rx pantoprazole 20 mg tablet,delayed 20 mg PO DAILY #90 tabs 05/08/24 07/27/24 Rx release metoprolol tartrate 50 mg tablet 50 mg PO BID #180 tabs 05/22/24 07/27/24 Rx hydrochlorothiazide 12.5 mg tablet 12.5 mg PO QAM #30 tabs 07/02/24 07/27/24 Rx Past Med/Surg History Problem List (Updated 07/28/24 @ 00:56 by Calderon Li MD) Pulmonary embolism Pleural effusion Left-sided chest pain (Acute) Hyponatremia Left ear hearing loss Otalgia, left ear Neutropenia Hypercalcemia Osteoporosis Medicare annual wellness visit, subsequent Vitamin D insufficiency Chronic cough Dyspnea Close exposure to COVID-19 virus Intermittent palpitations Intermittent palpitations Vitamin D deficiency (Acute) Osteoporosis (Acute) Chronic back pain (Acute) Celiac disease (Acute) Barretts esophagus (Acute) Benign essential hypertension (Acute) Atopic dermatitis (Acute) Dyslipidemia Osteoarthritis of thumb (Acute) Uterine fibroid (Acute) Medical History No pertinent past medical history Surgical History History of tonsillectomy and adenoidectomy Family History Other No pertinent family history Social History Smoking Status: Never smoker Hx Alcohol Use: No Hx Substance Use: No Preferred Language: Turkmen Visual Impairment: Limited Hearing Ability: Normal marital status: Current Living Situation: Spouse current occupational status: retired How many Children do You have: 2 Feels Safe at Home: Yes Childhood Exposure to Second-Hand Smoke: Yes Diet: gluten free caffeine: Yes Dental Care, Regularly: Yes Physical Activity Frequency: 3-4 Times per Week Physical Activity Frequency Comment: walking Seatbelt Use: always Sunscreen Use: No Review of Systems Review of Systems: The patient denies palpitations, lower extremity swelling, sore throat, fevers, chills, sweats, weight change, fatigue, nausea, vomiting, diarrhea , constipation, abdominal pain, pelvic pain, blood in urine or stool, dysuria, urinary frequency or urgency, lightheadedness, dizziness, headache, memory loss, loss of consciousness, rash, abnormal bruising or bleeding, imbalance, focal or generalized weakness, numbness or tingling in arms or legs, generalized arthralgias or myalgias, back or neck pain, or night sweats. The review of systems is otherwise negative other than for that already noted above, and at least 10 systems have been reviewed. Physical Exam Physical Exam: The patient is awake, alert and oriented 3, well developed and well nourished, normocephalic and atraumatic, lying in bed and in no acute distress. HEENT--PERRL, EOMI, mucous membranes and oropharynx mildly dry. Neck--supple. No JVD. No bruits. Thyroid normal, trachea midline, no adenopathy. Heart--normal S1 and S2. No murmurs, rubs or gallops. Lungs--decreased breath sounds left base. No respiratory distress, no accessory muscle use. Abdomen--normal bowel sounds and soft. Nontender. Nondistended Extremities--no cyanosis or clubbing. No edema. There are good distal pulses b/l. Dermatologic--normal skin turgor, normal color, no abnormal lymph nodes, no rash. Neurologic--cranial nerves II through XII grossly intact. Rheumatologic--normal range of motion. Psychiatric--normal affect. Results & Data Results & Data Vital Signs (Past 12 Hours) Vital Signs Temp Pulse Pulse Resp BP BP Pulse Ox 07/27/24 20:42 72 28 H 105/59 L 96 07/27/24 20:32 64 19 88/48 L 94 07/27/24 20:03 77 24 161/89 H 94 07/27/24 19:48 78 20 158/79 H 95 07/27/24 19:42 07/27/24 19:42 80 24 158/79 H 94 07/27/24 19:17 82 24 151/91 H 93 07/27/24 18:47 75 28 H 159/81 H 97 07/27/24 18:44 74 07/27/24 18:44 67 18 118/69 96 07/27/24 17:25 36.9 C 79 18 172/90 H 96 O2 Del Method 07/27/24 20:42 07/27/24 20:32 07/27/24 20:03 07/27/24 19:48 07/27/24 19:42 Room Air 07/27/24 19:42 Room Air 07/27/24 19:17 07/27/24 18:47 07/27/24 18:44 07/27/24 18:44 Room Air 07/27/24 17:25 Room Air Laboratory Results Laboratory Results WBC 11.49 K/ul (4.8-10.8) H 07/27/24 17:50 RBC 4.02 M/uL (4.20-5.40) L 07/27/24 17:50 Hgb 12.6 g/dl (12.0-16.0) 07/27/24 17:50 Hct 37.1 % (37.0-47.0) 07/27/24 17:50 MCV 92.3 fL (80.0-100.0) 07/27/24 17:50 MCH 31.3 pg (25.0-34.0) 07/27/24 17:50 MCHC 34.0 g/dL (32.0-36.0) 07/27/24 17:50 RDW Std Deviation 40.0 fL (36.4-46.3) 07/27/24 17:50 RDW Coeff of [place]ina 11.8 % (11.5-14.5) 07/27/24 17:50 Plt Count 394 K/uL (130-400) 07/27/24 17:50 MPV 9.3 fL (9.4-12.4) L 07/27/24 17:50 Immature Gran % (Auto) 0.3 % 07/27/24 17:50 Neut % (Auto) 71.6 % 07/27/24 17:50 Lymph % (Auto) 16.1 % 07/27/24 17:50 [place] % (Auto) 11.4 % 07/27/24 17:50 Eos % (Auto) 0.3 % 07/27/24 17:50 Baso % (Auto) 0.3 % 07/27/24 17:50 Neut # (Auto) 8.24 K/uL (1.40-6.50) H 07/27/24 17:50 Lymph # (Auto) 1.85 K/uL (1.20-3.40) 07/27/24 17:50 [place] # (Auto) 1.31 K/uL (0.11-0.59) H 07/27/24 17:50 Eos # (Auto) 0.03 K/uL (0.00-0.50) 07/27/24 17:50 Baso # (Auto) 0.03 K/uL (0.00-0.20) 07/27/24 17:50 Immature Gran # (Auto) 0.03 K/uL (0.01-0.20) 07/27/24 17:50 APTT 29 Seconds (21-31) 07/27/24 17:50 PTT Ratio 1.1 07/27/24 17:50 Sodium 127 mmol/L (136-145) L 07/27/24 17:50 Potassium 4.3 mmol/L (3.5-5.1) 07/27/24 17:50 Chloride 92 mmol/L (98-107) L 07/27/24 17:50 Carbon Dioxide 26 mmol/L (21-32) 07/27/24 17:50 Anion Gap 9 (3-11) 07/27/24 17:50 BUN 15 mg/dl (6-23) 07/27/24 17:50 Creatinine 0.65 mg/dl (0.6-1.2) 07/27/24 17:50 Est Cr Clr Drug Dosing 61.0 ml/min 07/27/24 17:50 eGFR 91.19 07/27/24 17:50 BUN/Creatinine Ratio 23.1 (10-20) H 07/27/24 17:50 Glucose 110 mg/dl (70-99(Fasting)) H 07/27/24 17:50 Calcium 10.1 mg/dl (8.6-10.3) 07/27/24 17:50 Total Bilirubin 0.6 mg/dl (0.2-1.0) 07/27/24 17:50 AST 17 U/L (13-39) 07/27/24 17:50 ALT 14 U/L (7-52) 07/27/24 17:50 Alkaline Phosphatase 86 U/L (34-104) 07/27/24 17:50 Troponin I High Sens 6.7 pg/ml (0-14) 07/27/24 17:50 Total Protein 8.0 gm/dl (6.0-8.3) 07/27/24 17:50 Albumin 4.6 gm/dl (3.4-5.0) 07/27/24 17:50 Globulin 3.4 gm/dl (2.5-4.0) 07/27/24 17:50 Albumin/Globulin Ratio 1.4 (0.9-2) 07/27/24 17:50 Urine Color Yellow 07/27/24 18:40 Urine Appearance Clear (Clear) 07/27/24 18:40 Urine pH 7.0 (4.5-7.5) 07/27/24 18:40 Ur Specific [place] 1.015 (1.000-1.030) 07/27/24 18:40 Urine Protein Negative (Negative) 07/27/24 18:40 Urine Glucose (UA) Negative (Negative) 07/27/24 18:40 Urine Ketones 1+ (Negative) H 07/27/24 18:40 Urine Blood Negative (Negative) 07/27/24 18:40 Urine Nitrite Negative (Negative) 07/27/24 18:40 Urine Bilirubin Negative (Negative) 07/27/24 18:40 Urine Urobilinogen Negative (Negative) 07/27/24 18:40 Ur Leukocyte Esterase 1+ (Negative) H 07/27/24 18:40 Urine WBC (Auto) 0-5 /hpf (0-5) 07/27/24 18:40 Urine RBC (Auto) 0-2 /hpf (0-2) 07/27/24 18:40 U Hyaline Cast (Auto) 0-2 /lpf (0-2) 07/27/24 18:40 U Epithel Cells (Auto) 0-2 /hpf (0-2) 07/27/24 18:40 Urine Bacteria (Auto) None Seen (None Seen) 07/27/24 18:40 Impressions Chest X-Ray 07/27/24 17:31 EXAM: XR chest 1V portable CLINICAL HISTORY: Left chest pain TECHNIQUE: An X-ray image of the chest is obtained in AP projection. COMPARISON: prior 07/28/2021 FINDINGS: Pulmonary Parenchyma: left-sided moderate pleural effusion Heart and Mediastinum: Heart size and shape are normal. possible right-sided hilar opacity Bony Thorax: Bony thorax appears intact without fractures or deformities. Soft Tissues: Soft tissues overlying the chest wall are unremarkable. IMPRESSION: 1. left-sided moderate pleural effusion (newly developed) 2. possible right-sided hilar opacity (patient is rotated), possible vascular shadow however the possiblty of underlying masses can't be excluded. New 3. further assessment by CT is recommended Electronically signed by Sadia Cano 07-27-2024 7:32 PM Chest CTA 07/27/24 18:13 HISTORY: Left lower chest pain. TECHNIQUE: Helical CT angiography of the chest was performed following uneventful administration of 118 mL of Optiray 320 IV contrast. Images are presented in axial, sagittal, coronal reformats. Coronal and sagittal 3D MIP reconstructions are also provided. COMPARISON: None. FINDINGS: Study is of diagnostic quality for evaluation of the pulmonary arteries to the level of the segmental vessels. An acute segmental pulmonary embolism is seen involving the basal left lower lobe on series 2 image 53. No large or central PE is identified. Thoracic aorta is normal in caliber. No evidence of aortic dissection or acute aortic process. Mild atherosclerotic vascular disease. No coronary artery calcifications. Cardiomegaly. No significant pericardial effusion. Nonspecific mildly enlarged mediastinal and hilar lymph nodes may be reactive.. Included thyroid gland is unremarkable. Thoracic esophagus is unremarkable. The included upper abdomen is unremarkable. The soft tissues of the chest wall are unremarkable. Moderate layering left pleural effusion. Patchy airspace opacities involving the left greater than right lung base favoring atelectasis. No pneumothorax. Central tracheobronchial tree is patent. No acute osseous abnormality. IMPRESSION: 1. Positive for acute pulmonary embolism with an acute segmental PE to the basilar left lower lobe on series 4 image 104. No large or central PE. No right heart strain. 2. Moderate left pleural effusion. Patchy areas of airspace opacity involving left greater than right lung base may representcombination of pneumonia and atelectasis. Mildly enlarged mediastinal and hilar lymph nodes may be reactive. Follow-up chest CT with contrast is recommended in 1 to 2 months to evaluate for resolution. 3. Cardiomegaly. 4. Additional chronic and/or incidental findings as detailed above * Findings were discussed with the ordering provider Dr. Mio Mccartney via telephone at 7:35 PM. Electronically signed by Mio Garcia 07-27-2024 7:40 PM Venous Doppler Study 07/27/24 21:06 Exam(s): US VENOUS BILATERAL LOWER EXTREMITIES EXAM: US Duplex Bilateral Lower Extremities Veins CLINICAL HISTORY: Reason for exam: PE. TECHNIQUE: Real-time duplex ultrasound scan of the bilateral lower extremity veins integrating B-mode two-dimensional vascular structure, Doppler spectral analysis, color flow Doppler imaging and compression. COMPARISON: No relevant prior studies available. FINDINGS: Right deep veins: No DVT in the right common femoral, femoral, proximal deep femoral or popliteal veins. The veins demonstrate normal color flow, are normally compressible, with normal phasic flow and/or augmentation response. Right superficial veins: No thrombus in the visualized right great saphenous vein. Left deep veins: No DVT in the left common femoral, femoral, proximal deep femoral or popliteal veins. The veins demonstrate normal color flow, are normally compressible, with normal phasic flow and/or augmentation response. Left superficial veins: No thrombus in the visualized left great saphenous vein. Soft tissues: No acute findings. No popliteal cyst. IMPRESSION: No ultrasound evidence of deep venous thrombosis in the lower extremities. . Electronically signed by: Genaro Mejia MD 07/27/24 22:52 PM Code Status & VTE Plan Code Status Full code VTE Prophylaxis Plan VTE Prophylaxis will be ordered: Yes PG Care Time/CCT Total # of Minutes Spent Total Time Spent with Patient: Total time spent is greater than 50% in coordination of care (as documented) at patient's floor/unit and/or counseling patient: Coding Level of Care Code 00373 INT INP/OBS CARE MIN Diagnoses Hyponatremia E87.1 Pleural effusion J90 Pulmonary embolism I26.99 Left-sided chest pain R07.9
[2024-07-27] MEDS: PANTOprazole 40 MG TAB PO STA (22:23)
[2024-07-27] MEDS: MoRPHine SULFATE 2 MG/ML CARP IV PRN (22:24)
[2024-07-27] MEDS: LIDOCAINE 5% 1 PATCH TD STA (22:24)
--- NOTE | 2024-07-27 22:53 | Ultrasound Report ---
Exam(s): US VENOUS BILATERAL LOWER EXTREMITIES EXAM: US Duplex Bilateral Lower Extremities Veins CLINICAL HISTORY: Reason for exam: PE. TECHNIQUE: Real-time duplex ultrasound scan of the bilateral lower extremity veins integrating B-mode two-dimensional vascular structure, Doppler spectral analysis, color flow Doppler imaging and compression. COMPARISON: No relevant prior studies available. FINDINGS: Right deep veins: No DVT in the right common femoral, femoral, proximal deep femoral or popliteal veins. The veins demonstrate normal color flow, are normally compressible, with normal phasic flow and/or augmentation response. Right superficial veins: No thrombus in the visualized right great saphenous vein. Left deep veins: No DVT in the left common femoral, femoral, proximal deep femoral or popliteal veins. The veins demonstrate normal color flow, are normally compressible, with normal phasic flow and/or augmentation response. Left superficial veins: No thrombus in the visualized left great saphenous vein. Soft tissues: No acute findings. No popliteal cyst. IMPRESSION: No ultrasound evidence of deep venous thrombosis in the lower extremities. . Electronically signed by: Genaro Mejia MD 07/27/24 22:52 PM
[2024-07-28] MEDS: METOPROLOL TARTRATE 50 MG TAB PO SCH (02:31)
[2024-07-28] MEDS: CEROVITE ADV FORMULA TAB PO SCH (02:31)
[2024-07-28 03:02] LABS: Basophils # (auto) 0.03 K/uL (0.00-0.20); Basophils % (auto) 0.3 %; Hematocrit (blood only) 32.9 % (37.0-47.0); Immature Granulocytes # (auto) 0.02 K/uL (0.01-0.20); Immature Granulocytes % (auto) 0.2 %; Lymphocytes # (auto) 1.74 K/uL (1.20-3.40); Lymphocytes % (auto) 18.1 %; Mean Corpuscular Hemoglobin 31.3 pg (25.0-34.0); Mean Corpuscular Hgb Conc 33.4 g/dL (32.0-36.0); Mean Corpuscular Volume 93.7 fL (80.0-100.0); Mean Platelet Volume 9.1 fL (9.4-12.4); Monocytes # (auto) 1.11 K/uL (0.11-0.59); Monocytes % (auto) 11.5 %; Neutrophils # (auto) 6.73 K/uL (1.40-6.50); Neutrophils % (auto) 69.9 %; Platelet Count 343 K/uL (130-400); RDW Standard Deviation 41.4 fL (36.4-46.3); Red Blood Count 3.51 M/uL (4.20-5.40); White Blood Count 9.63 K/ul (4.8-10.8)
[2024-07-28 03:27] LABS: ANTI-Xa, UFH(UnfractionatedHep 0.24 IU/ml (0.3-0.7)
[2024-07-28 03:32] LABS: Partial Thromboplastin Ratio 1.3; Partial Thromboplastin Time 36 Seconds (21-31); Prothrombin Time 10.9 Seconds (9.0-12.0)
[2024-07-28 03:35] LABS: Albumin Globulin Ratio 1.4 (0.9-2); Albumin Level 3.8 gm/dl (3.4-5.0); BUN Creatinine Ratio 22.2 (10-20); Bilirubin,Total 0.5 mg/dl (0.2-1.0); Creatinine Clr Calc Pharmacy 68.1 ml/min; Globulin 2.8 gm/dl (2.5-4.0); Magnesium 1.7 mg/dl (1.7-2.4); Potassium 4.4 mmol/L (3.5-5.1); Total Protein 6.6 gm/dl (6.0-8.3)
[2024-07-28 03:41] LABS: Troponin I High Sensitivity 8.1 pg/ml (0-14)
--- NOTE | 2024-07-28 07:15 | Electrocardiogram Report ---
Test Reason : Blood Pressure : */* mmHG Vent. Rate : 81 BPM Atrial Rate : 81 BPM P-R Int : 170 ms QRS Dur : 72 ms QT Int : 360 ms P-R-T Axes : 89 -8 27 degrees QTcB Int : 418 ms Sinus rhythm with Premature atrial complexes Nonspecific ST and T wave abnormality Abnormal ECG No previous ECGs available Confirmed by Aniket Stevens ([id number]) on 07/28/2024 7:15:10 AM Referred By: REFERRED SELF Confirmed By: Aniket Stevens
[2024-07-28] MEDS: PANTOprazole 40 MG TAB PO SCH (08:06)
[2024-07-28] MEDS: MULTIVITAMIN TAB PO SCH (08:06)
--- NOTE | 2024-07-28 09:53 | Hospitalist Progress Note ---
Date of Service July 28, 2024 Assessment & Plan (1) Hyponatremia: (2) Pleural effusion: (3) Pulmonary embolism: (4) Left-sided chest pain: Plan The patient is a 78-year-old female with a past medical history including hyponatremia, vitamin D insufficiency, history of palpitations, Lewis's esophagus, celiac disease, benign essential hypertension, atopic dermatitis, dyslipidemia, thumb osteoarthritis, and uterine fibroid. The patient presents to the emergency department with complaint of 4 days of left anterior rib cage pain, worse with deep inspiration. She denies any recent travels, sick exposures. She does report that the pain periodically goes up into her left wes ulder. She had no previous occurrence of these types of symptoms. She presents to the emergency department this evening due to persistence and worsening of the pain. She denies any pain and/or swelling, in either leg. Workup in the emergency department included a chest x-ray suggestive of moderate left pleural effusion. CT angiography PE protocol was significant for left lower lobe pulmonary embolism. Patient is also referred to the [facility] service for further evaluation and treatment. Of note, patient does report upon questioning, that her mother did have a clot when she was younger. #Pulmonary embolism left lower lobe- Acute unprovoked PE As noted on CTA PE protocol Hypercoagulable workup ordered, as patient reports a family history of her mother having had a clot at a young age. Start heparin drip per protocol. (hold heparin 6 hrs before thoracentesis tomorrow 07/29) Lower extremity venous Doppler negative for DVT Transition to PO anticoagulation prior to discharge #Moderate pleural effusion left lower lobe- New compared to previous May benefit from a thoracentesis Continue heparin drip for now, which can be stopped if anticipated thoracentesis #Pain management- Patient did receive Dilaudid 0.5 IV x 1 from the ED, and developed an acute drop of blood pressure to systolic 80, and became somewhat disoriented. Acetaminophen 650 mg by mouth every 6 hours as needed for mild pain or fever Patient presently takes tramadol 50 mg p.o. 3 times daily as needed. Will change to 50 mg every 4 hours as needed moderate pain Morphine sulfate 1 mg IV every 3 hours as needed for severe pain Started Lidoderm patch over lower rib cage area #Hyponatremia/intermittent cough/hypertension- It has been noted the patient she has been hyponatremic secondary to HCTZ Will hold HCTZ and follow sodium levels, with present level being 127, and range 127-132 Patient has had intermittent cough over the past number of months Will hold losartan She has been on amlodipine in the past, which caused her feet to swell. Her PCP has suggested felodipine 2.5 mg, which would be a good option. At this point, her blood pressure is reasonably good Admission and Anticipated Discharge Date Admission Date: July 27, 2024 Subjective patient seen and examined, says pain is under fair control Review of Systems Review of Systems: All systems reviewed are negative, apart from the ones contained in the history. Physical Exam Physical Exam: The patient is awake, alert and oriented 3, well developed and well nourished, normocephalic and atraumatic, lying in bed and in no acute distress. HEENT--PERRL, EOMI, mucous membranes and oropharynx mildly dry Neck--supple. No JVD. No bruits. Thyroid normal, trachea midline, no adenopathy. Heart--normal S1 and S2. No murmurs, rubs or gallops. Lungs--reduced air on auscultation left lung Abdomen--normal bowel sounds and soft. Extremities--no cyanosis or clubbing. No edema. Dermatologic--normal skin turgor, normal color, no abnormal lymph nodes, no rash. Neurologic--cranial nerves II through XII grossly intact. Rheumatologic--normal range of motion. Psychiatric--normal affect. Results & Data Results & Data Vital Signs (Past 12 Hours) Vital Signs Temp Pulse Pulse Resp BP BP Pulse Ox 07/28/24 09:03 97.7 F 63 20 136/77 95 07/28/24 07:36 61 07/28/24 07:30 113/67 07/28/24 07:27 56 L 12 96 07/28/24 07:27 57 L 18 133/72 96 07/28/24 07:24 55 L 13 96 07/28/24 07:08 62 07/28/24 06:33 61 11 L 96 07/28/24 06:30 110/60 07/28/24 06:30 110/60 07/28/24 06:30 110/60 07/28/24 06:15 61 13 96 07/28/24 06:03 57 L 13 95 07/28/24 06:00 106/61 07/28/24 06:00 106/61 07/28/24 05:45 58 L 18 96 07/28/24 05:36 64 27 H 91 07/28/24 05:30 127/71 07/28/24 05:30 127/71 07/28/24 05:27 59 L 19 91 07/28/24 05:00 93 07/28/24 05:00 126/70 07/28/24 05:00 126/70 07/28/24 04:33 62 14 96 07/28/24 04:30 129/67 07/28/24 04:24 57 L 17 95 07/28/24 04:06 64 14 96 07/28/24 04:00 129/70 07/28/24 04:00 129/70 07/28/24 03:57 63 15 96 07/28/24 03:36 59 L 13 95 07/28/24 03:30 115/69 07/28/24 03:24 63 19 94 07/28/24 03:22 07/28/24 03:22 98.1 F 62 18 120/62 94 07/28/24 03:21 65 18 120/69 94 07/28/24 03:20 07/28/24 03:03 59 L 18 94 07/28/24 03:00 120/69 07/28/24 03:00 120/69 07/28/24 02:45 61 23 94 07/28/24 02:30 66 29 H 96 07/28/24 02:02 62 07/28/24 02:00 138/100 07/28/24 02:00 138/100 07/28/24 01:57 61 23 96 07/28/24 01:33 64 15 95 07/28/24 01:31 133/81 07/28/24 01:31 133/81 07/28/24 01:31 133/81 07/28/24 01:24 58 L 16 96 07/28/24 01:00 118/69 07/28/24 01:00 118/69 07/28/24 01:00 118/69 07/28/24 01:00 63 19 96 07/28/24 00:30 68 16 96 07/28/24 00:30 107/66 07/28/24 00:30 107/66 07/28/24 00:03 68 16 95 02/16/25 00:00 71 18 118/55 L 96 07/27/24 22:39 78 07/27/24 22:30 77 26 H 141/78 H 95 07/27/24 22:24 79 35 H 143/86 H 96 Pulse Ox O2 Del Method O2 Del Method O2 Flow Rate O2 Flow Rate 07/28/24 09:03 Nasal Cannula 1 07/28/24 07:36 07/28/24 07:30 07/28/24 07:27 07/28/24 07:27 Room Air 07/28/24 07:24 07/28/24 07:08 07/28/24 06:33 07/28/24 06:30 07/28/24 06:30 07/28/24 06:30 07/28/24 06:15 07/28/24 06:03 07/28/24 06:00 07/28/24 06:00 07/28/24 05:45 07/28/24 05:36 07/28/24 05:30 07/28/24 05:30 07/28/24 05:27 07/28/24 05:00 07/28/24 05:00 07/28/24 05:00 07/28/24 04:33 07/28/24 04:30 07/28/24 04:24 07/28/24 04:06 07/28/24 04:00 07/28/24 04:00 07/28/24 03:57 07/28/24 03:36 07/28/24 03:30 07/28/24 03:24 07/28/24 03:22 Nasal Cannula 2 07/28/24 03:22 Nasal Cannula 2 07/28/24 03:21 Nasal Cannula 2 07/28/24 03:20 94 Nasal Cannula 2 07/28/24 03:03 07/28/24 03:00 07/28/24 03:00 07/28/24 02:45 07/28/24 02:30 07/28/24 02:02 07/28/24 02:00 07/28/24 02:00 07/28/24 01:57 07/28/24 01:33 07/28/24 01:31 07/28/24 01:31 07/28/24 01:31 07/28/24 01:24 07/28/24 01:00 07/28/24 01:00 07/28/24 01:00 07/28/24 01:00 07/28/24 00:30 07/28/24 00:30 07/28/24 00:30 07/28/24 00:03 07/28/24 00:00 Nasal Cannula 2 07/27/24 22:39 07/27/24 22:30 07/27/24 22:24 PG Care Time/CCT Total # of Minutes Spent Total Time Spent with Patient: Total time spent is greater than 50% in coordination of care (as documented) at patient's floor/unit and/or counseling patient: Coding Level of Care Code 97741 SUB INP/OBS CARE 2/35MIN Diagnoses Hyponatremia E87.1 Pleural effusion J90 Pulmonary embolism I26.99 Left-sided chest pain R07.9 Time Spent (min) 35
[2024-07-28] MEDS: traMADol HCL 50 MG TABLET PO PRN (10:07)
--- NOTE | 2024-07-28 11:11 | XCELERA ---
[id number]
[2024-07-28 11:51] LABS: ANTI-Xa, UFH(UnfractionatedHep 0.23 IU/ml (0.3-0.7)
[2024-07-28] MEDS: ACETAMINOPHEN 325 MG TAB PO PRN (17:44)
[2024-07-28] MEDS: ONDANSETRON INJ 2 MG/ML 2 ML VIAL IV PRN (17:59)
[2024-07-28 19:02] LABS: ANTI-Xa, UFH(UnfractionatedHep 0.19 IU/ml (0.3-0.7)
[2024-07-29 04:33] LABS: ANTI-Xa, UFH(UnfractionatedHep 0.29 IU/ml (0.3-0.7)
[2024-07-29 08:00] LABS: Basophils # (auto) 0.03 K/uL (0.00-0.20); Basophils % (auto) 0.3 %; Eosinophils # (auto) 0.01 K/uL (0.00-0.50); Eosinophils % (auto) 0.1 %; Hematocrit (blood only) 33.4 % (37.0-47.0); Hemoglobin 11.3 g/dl (12.0-16.0); Immature Granulocytes # (auto) 0.04 K/uL (0.01-0.20); Immature Granulocytes % (auto) 0.3 %; Lymphocytes # (auto) 1.67 K/uL (1.20-3.40); Lymphocytes % (auto) 14.5 %; Mean Corpuscular Hemoglobin 31.7 pg (25.0-34.0); Mean Corpuscular Hgb Conc 33.8 g/dL (32.0-36.0); Mean Corpuscular Volume 93.6 fL (80.0-100.0); Monocytes # (auto) 1.23 K/uL (0.11-0.59); Monocytes % (auto) 10.7 %; Neutrophils # (auto) 8.55 K/uL (1.40-6.50); Neutrophils % (auto) 74.1 %; Platelet Count 382 K/uL (130-400); RDW Coefficient of Variation 11.8 % (11.5-14.5); RDW Standard Deviation 40.8 fL (36.4-46.3); Red Blood Count 3.57 M/uL (4.20-5.40); White Blood Count 11.53 K/ul (4.8-10.8)
[2024-07-29 08:18] LABS: Albumin Globulin Ratio 1.1 (0.9-2); Albumin Level 3.8 gm/dl (3.4-5.0); BUN Creatinine Ratio 18.1 (10-20); Bilirubin,Total 0.5 mg/dl (0.2-1.0); Calcium 9.6 mg/dl (8.6-10.3); Creatinine Clr Calc Pharmacy 59.5 ml/min; Globulin 3.4 gm/dl (2.5-4.0); Magnesium 1.8 mg/dl (1.7-2.4); Potassium 4.4 mmol/L (3.5-5.1); Total Protein 7.2 gm/dl (6.0-8.3)
[2024-07-29 08:26] LABS: Partial Thromboplastin Ratio 1.5; Partial Thromboplastin Time 41 Seconds (21-31); Prothrombin Time 11.2 Seconds (9.0-12.0)
[2024-07-29 10:27] LABS: ANTI-Xa, UFH(UnfractionatedHep 0.37 IU/ml (0.3-0.7)
--- NOTE | 2024-07-29 12:30 | Hospitalist Progress Note ---
Date of Service July 29, 2024 Assessment & Plan (1) Hyponatremia: (2) Pleural effusion: (3) Pulmonary embolism: (4) Left-sided chest pain: Plan The patient is a 78-year-old female with a past medical history including hyponatremia, vitamin D insufficiency, history of palpitations, Lewis's esophagus, celiac disease, benign essential hypertension, atopic dermatitis, dyslipidemia, thumb osteoarthritis, and uterine fibroid. The patient presents to the emergency department with complaint of 4 days of left anterior rib cage pain, worse with deep inspiration. She denies any recent travels, sick exposures. She does report that the pain periodically goes up into her left wes ulder. She had no previous occurrence of these types of symptoms. She presents to the emergency department this evening due to persistence and worsening of the pain. She denies any pain and/or swelling, in either leg. Workup in the emergency department included a chest x-ray suggestive of moderate left pleural effusion. CT angiography PE protocol was significant for left lower lobe pulmonary embolism. Patient is also referred to the [facility] service for further evaluation and treatment. Of note, patient does report upon questioning, that her mother did have a clot when she was younger. #Pulmonary embolism left lower lobe- Acute unprovoked PE As noted on CTA PE protocol Hypercoagulable workup ordered, as patient reports a family history of her mother having had a clot at a young age. Start heparin drip per protocol. (as per interventional radiology hold heparin 1 hrs before thoracentesis tomorrow 07/30) Lower extremity venous Doppler negative for DVT Transition to PO anticoagulation prior to discharge #Moderate pleural effusion left lower lobe- New compared to previous May benefit from a thoracentesis Continue heparin drip for now, which can be stopped if anticipated thoracentesis #Pain management- Patient did receive Dilaudid 0.5 IV x 1 from the ED, and developed an acute drop of blood pressure to systolic 80, and became somewhat disoriented. Acetaminophen 650 mg by mouth every 6 hours Will be switched to scheduled. Patient presently takes tramadol 50 mg p.o. 3 times daily as needed. Will change to 50 mg every 4 hours as needed moderate pain Morphine sulfate 1 mg IV every 3 hours as needed for severe pain Started Lidoderm patch over lower rib cage area added voltaren gel. #Hyponatremia/intermittent cough/hypertension- It has been noted the patient she has been hyponatremic secondary to HCTZ Will hold HCTZ and follow sodium levels, with present level being 127, and range 127-132 Patient has had intermittent cough over the past number of months Will hold losartan She has been on amlodipine in the past, which caused her feet to swell. Her PCP has suggested felodipine 2.5 mg, which would be a good option. At this point, her blood pressure is reasonably good Admission and Anticipated Discharge Date Admission Date: July 27, 2024 Subjective 78 yo female reports feeling better. Her main complaint is her bilateral knee pain. Physical Exam Physical Exam: The patient is awake, alert and oriented 3, well developed and well nourished, normocephalic and atraumatic, lying in bed and in no acute distress. HEENT--PERRL, EOMI Neck--supple. No JVD. Heart--normal S1 and S2. No murmurs, rubs or gallops. Lungs--reduced air on auscultation left lung Abdomen--normal bowel sounds and soft. Extremities--no cyanosis or clubbing. No edema. Results & Data Results & Data Vital Signs (Past 12 Hours) Vital Signs Temp Pulse Pulse Resp BP BP Pulse Ox 07/29/24 11:29 36.9 C 70 20 142/77 H 96 07/29/24 07:18 37.2 C 86 18 154/80 H 95 07/29/24 06:57 67 07/29/24 02:54 36.9 C 69 20 122/74 95 O2 Del Method O2 Flow Rate 07/29/24 11:29 Nasal Cannula 2 07/29/24 07:18 Nasal Cannula 2.0 07/29/24 06:57 07/29/24 02:54 Nasal Cannula 2 PG Care Time/CCT Total # of Minutes Spent Total Time Spent with Patient: Total time spent is greater than 50% in coordination of care (as documented) at patient's floor/unit and/or counseling patient: Coding Level of Care Code 70219 SUB INP/OBS CARE 3/50MIN Diagnoses Hyponatremia E87.1 Pleural effusion J90 Pulmonary embolism I26.99 Left-sided chest pain R07.9
[2024-07-29] MEDS: ACETAMINOPHEN 325 MG TAB PO SCH (13:00)
[2024-07-29] MEDS: DICLOFENAC SOD 1% GEL 100 GM TUBE EXT SCH (13:01)
[2024-07-29] MEDS: POLYETHYLENE (MIRALAX) 17 GM PACK PO PRN (21:46)
[2024-07-30 07:42] LABS: Basophils # (auto) 0.03 K/uL (0.00-0.20); Basophils % (auto) 0.3 %; Eosinophils # (auto) 0.04 K/uL (0.00-0.50); Eosinophils % (auto) 0.4 %; Hematocrit (blood only) 33.5 % (37.0-47.0); Hemoglobin 11.2 g/dl (12.0-16.0); Immature Granulocytes # (auto) 0.03 K/uL (0.01-0.20); Immature Granulocytes % (auto) 0.3 %; Lymphocytes # (auto) 2.03 K/uL (1.20-3.40); Lymphocytes % (auto) 20.8 %; Mean Corpuscular Hemoglobin 31.5 pg (25.0-34.0); Mean Corpuscular Hgb Conc 33.4 g/dL (32.0-36.0); Mean Corpuscular Volume 94.4 fL (80.0-100.0); Mean Platelet Volume 9.6 fL (9.4-12.4); Monocytes # (auto) 1.23 K/uL (0.11-0.59); Monocytes % (auto) 12.6 %; Neutrophils # (auto) 6.38 K/uL (1.40-6.50); Neutrophils % (auto) 65.6 %; Platelet Count 377 K/uL (130-400); RDW Coefficient of Variation 11.9 % (11.5-14.5); RDW Standard Deviation 41.1 fL (36.4-46.3); Red Blood Count 3.55 M/uL (4.20-5.40); White Blood Count 9.74 K/ul (4.8-10.8)
[2024-07-30 07:50] LABS: ANTI-Xa, UFH(UnfractionatedHep 0.25 IU/ml (0.3-0.7); Partial Thromboplastin Ratio 1.4; Partial Thromboplastin Time 39 Seconds (21-31); Prothrombin Time 11.2 Seconds (9.0-12.0)
[2024-07-30 08:16] LABS: Albumin Level 3.5 gm/dl (3.4-5.0); BUN Creatinine Ratio 20.3 (10-20); Bilirubin,Total 0.5 mg/dl (0.2-1.0); Calcium 9.4 mg/dl (8.6-10.3); Creatinine Clr Calc Pharmacy 62.3 ml/min; Globulin 3.5 gm/dl (2.5-4.0); Magnesium 1.8 mg/dl (1.7-2.4); Potassium 4.3 mmol/L (3.5-5.1)
--- NOTE | 2024-07-30 15:14 | Ultrasound Report ---
ULTRASOUND-GUIDED LEFT THORACENTESIS CLINICAL HISTORY: Left pleural effusion PROCEDURE: Procedure and risks were explained. Informed consent was obtained. A final timeout was com pleted. The left posterior thorax was prepped and draped in sterile fashion. 1% lidocaine was utilize d for skin anesthesia. Utilizing ultrasound guidance, a 5 [place] safety centesis catheter was advanced into the left pleural effusion. Ultrasound images were obtained. A total of 400 mL of yellow pleural fluid was removed and sent to the lab. The catheter was removed and Band-Aid applied. The patient tolerated the procedure well. A chest x-ray will be obtained post procedure. Vital signs will be monitored on the floor. IMPRESSION: Ultrasound-guided left thoracentesis as above. Performed, dictated, and signed by Osvaldo Farr PA-C; to be co-signed by Dr. Oscar Pa. Electronically signed by: Oscar Pa M.D. 07/30/2024 3:25 PM
[2024-07-30 15:30] VITALS: TEMP 97.5
--- NOTE | 2024-07-30 15:34 | XRay Report ---
XR chest 1V portable CLINICAL HISTORY: S/P Thoracentesis COMPARISON STUDY: 07/27/2024 FINDINGS: Single view portable chest demonstrates a decrease in the left pleural effusion. Persistent left basilar discoid atelectasis and/or infiltrate are noted. No definite evidence of a pneumothorax . Scarring and/or discoid atelectasis is noted at the right lung base as well. Heart size and pulmonary vascularity are unremarkable. IMPRESSION: Status post left thoracentesis with no definite evidence of a pneumothorax. Small residu al left pleural effusion. Persistent left basilar atelectasis and/or infiltrate. ACT 112: Negative or not required by law. Electronically signed by: Lyric Lopez M.D. 07/30/2024 3:32 PM
[2024-07-30 16:11] LABS: Total Protein Pleural Fluid 3.7 gm/dl
--- NOTE | 2024-07-30 16:25 | Discharge Summary ---
Discharge Summary Date of Service July 30, 2024 Principal Dx & Hospital Course #1 = Principal Diagnosis (1) Hyponatremia: (2) Pleural effusion: (3) Pulmonary embolism: (4) Left-sided chest pain: Plan The patient is a 78-year-old female with a past medical history including hyponatremia, vitamin D insufficiency, history of palpitations, Lewis's esophagus, celiac disease, benign essential hypertension, atopic dermatitis, dyslipidemia, thumb osteoarthritis, and uterine fibroid. The patient presents to the emergency department with complaint of 4 days of left anterior rib cage pain, worse with deep inspiration. She denies any recent travels, sick exposures. She does report that the pain periodically goes up into her left shoulder. She had no previous occurrence of these types of symptoms. She presents to the emergency department this evening due to persistence and worsening of the pain. She denies any pain and/or swelling, in either leg. Workup in the emergency department included a chest x-ray suggestive of moderate left pleural effusion. CT angiography PE protocol was significant for left lower lobe pulmonary embolism. [facility]. Of note, patient does report upon questioning, that her mother did have a clot when she was younger. #Pulmonary embolism left lower lobe- Acute unprovoked PE As noted on CTA PE protocol Hypercoagulable workup ordered, as patient reports a family history of her mother having had a clot at a young age. Start heparin drip per protocol. (as per interventional radiology hold heparin 1 hrs before thoracentesis tomorrow 07/30) Lower extremity venous Doppler negative for DVT Transition to PO Eliquis as noted below on discharge instructions #Moderate pleural effusion left lower lobe- New compared to previous Patient completed thoracocenthesis: Fluid appears to be exudative process Cytology/Pathology showed mesothelial cells which could be inflammation perhaps from P/E. Cultures were negative making infection unlikely. Follow-up chest CT with contrast is recommended in 1 to 2 months to evaluate for resolution. #Pain management- Patient did receive Dilaudid 0.5 IV x 1 from the ED, and developed an acute drop of blood pressure to systolic 80, and became somewhat disoriented. Acetaminophen 650 mg by mouth every 6 hours Will be switched to scheduled. Patient presently takes tramadol 50 mg p.o. 3 times daily as needed. Will change to 50 mg every 4 hours as needed moderate pain Morphine sulfate 1 mg IV every 3 hours as needed for severe pain Started Lidoderm patch over lower rib cage area discharge pain meds noted below #Hyponatremia/intermittent cough/hypertension- It has been noted the patient she has been hyponatremic secondary to HCTZ Will hold HCTZ and follow sodium levels, with present level being 127, and range 127-132 Patient has had intermittent cough over the past number of months Will hold losartan She has been on amlodipine in the past, which caused her feet to swell. Her PCP has suggested felodipine 2.5 mg, which would be a good option. At this point, her blood pressure is reasonably good Admission HPI Per Admitting Provider The patient is a 78-year-old female with a past medical history including hyponatremia, vitamin D insufficiency, history of palpitations, Lewis's esophagus, celiac disease, benign essential hypertension, atopic dermatitis, dyslipidemia, thumb osteoarthritis, and uterine fibroid. The patient presents to the emergency department with complaint of 4 days of left anterior rib cage pain, worse with deep inspiration. She denies any recent travels, sick exposures. She does report that the pain periodically goes up into her left shoulder. She had no previous occurrence of these types of symptoms. She presents to the emergency department this evening due to persistence and worsening of the pain. She denies any pain and/or swelling, in either leg. Workup in the emergency department included a chest x-ray suggestive of moderate left pleural effusion. CT angiography PE protocol was significant for left lower lobe pulmonary embolism. [facility]. Discharge Exam The patient is awake, alert and oriented 3, well developed and well nourished, normocephalic and atraumatic, lying in bed and in no acute distress. HEENT--PERRL, EOMI Neck--supple. No JVD. Heart--normal S1 and S2. No murmurs, rubs or gallops. Lungs--reduced air on auscultation left lung Abdomen--normal bowel sounds and soft. Extremities--no cyanosis or clubbing. No edema. Discharge Plan Discharge Items Patient Disposition: Home - Self-Care Reason For Visit: LLE PE, LLL PLEURAL EFFUSION Discharge Diagnosis: Left lower Activity: Resume your previous activity Non-emergency contact: Primary Care Provider Call non-emergency contact if: you have any medication questions Follow-up/Referrals: Yobani Sanders MD [Primary Care Provider] - 08/06/24 11:30 am Diet: Gluten Free and Heart Healthy Addtl Attending Provider Instructions: Followup with PCP in 1-2 weeks. Take Eliquis twice a day starting tomorrow. For 6 more days you will take 2 tablets twice a day. Then you will take 1 tablet twice a day. Pending Studies at Discharge: No Stand-Alone Forms: My [facility], Smoking Cessation Medications and DC Order Prescriptions: New Eliquis 5 mg Tablet 10 mg PO BID Qty: 78 0RF Rx Instructions: Take 2 tablets twice a day for 6 days On August 06, will switch to 1 tablet twice a day Continued estradiol 10 mcg insert 10 mcg vaginal .COMPLEX Qty: 24 3RF Rx Instructions: 10 mcg vaginal twice per week; triamcinolone acetonide 0.1 % cream 1 applic topical BID PRN (Reason: atopic dermatitis) Qty: 30 3RF losartan 100 mg tablet 100 mg PO DAILY Qty: 90 3RF pantoprazole 20 mg tablet,delayed release (DR/EC) 20 mg PO DAILY Qty: 90 3RF metoprolol tartrate 50 mg tablet 50 mg PO BID Qty: 180 3RF hydrochlorothiazide 12.5 mg tablet 12.5 mg PO QAM Qty: 30 5RF PreserVision AREDS [id number] [id number] capsule 1 cap PO BID cholecalciferol (vitamin D3) 2,000 unit tablet 2,000 units PO DAILY Qty: 30 multivitamin [Daily Multi-Vitamin] Tablet 1 tab PO DAILY tramadol 50 mg tablet 50 mg PO TID PRN (Reason: Pain) Changed acetaminophen 650 mg tablet extended release 650 mg PO QID Qty: 0 0RF Discharge Orders: Discharge Order (Routine); Ordered 07/30/24 Ordered By: Mau Fernandez/Other Patient Handouts: Apixaban Oral Tablet Admission Data Admit Date/Time: 07/27/24 21:09 Attending Provider: Mau Swift Admit Provider: Calderon Li Primary Care Provider: Yobani Sanders Other Interventions: Discharge Summary Assessment (RN) Last Done: 07/30/24 17:44 Hospital Stay Data Consultations 07/27/24 20:17 ED Decision to Admit Stat Diagnostic Imagining Performed 07/27/24 18:13 CT angio chest PE protocol Stat 07/27/24 21:06 US venous doppler LE BI Stat 07/30/24 14:15 IR thoracentesis wo tube US Routine Pending Results Patient Have Any Pending Studies at Discharge: No Discharge Instructions Given to Patient (Per Discharging Provider) Followup with PCP in 1-2 weeks. Take Eliquis twice a day starting tomorrow. For 6 more days you will take 2 tablets twice a day. Then you will take 1 tablet twice a day. Total Time Total Time Spent Total Time Spent (In Minutes): 35 Coding Level of Care Code 81421 INP/OBS DISCH >30 MIN Diagnoses Hyponatremia E87.1 Pleural effusion J90 Pulmonary embolism I26.99 Left-sided chest pain R07.9
[2024-07-30 16:43] LABS: Appearance Pleural Fluid Slightly Hazy; Color Pleural Fluid Yellow; Lymphocytes, Fluid 23 %; Mono,Macrophage,Mesothelial 71 %; Neutrophils, Fluid 6 %; RBC Pleural Fluid Auto < 2000 /uL; Source Pleural Fluid Other; WBC Pleural Fluid Auto 1624 /uL
[2024-07-30 16:45] VITALS: PULSE 80; RESP 20; O2SAT 99
[2024-07-30] MEDS: APIXABAN 5 MG TABLET PO SCH (17:19)
[2024-07-30 17:45] VITALS: BP 158/90
[2024-08-01 07:32] LABS: PTT LA Screen 37 sec (<=40)
[2024-08-01 15:07] LABS: Anti Cardiolipin Ab IgG <2.0 GPL-U/mL; Anti Cardiolipin Ab IgM <2.0 MPL-U/mL; B2 Glycoprotein IgG <2.0 U/mL (<20.0); B2 Glycoprotein IgM <2.0 U/mL (<20.0)
== END 2024-07-30 17:46 | disposition home or self-care (01) | DRG 176 ==
LOC: ED 17:17 → EDINP 21:09 → SUATTDRO 21:09 → 2S 07-28 01:14
DX: K90.0 Celiac disease; E78.5 Hyperlipidemia, unspecified; M25.562 Pain in left knee; K22.70 Barrett's esophagus without dysplasia; E87.1 Hypo-osmolality and hyponatremia; E55.9 Vitamin D deficiency, unspecified; I95.2 Hypotension due to drugs; Z82.49 Family history of ischemic heart disease and other diseases of the circulatory system; Z79.899 Other long term (current) drug therapy; Z88.0 Allergy status to penicillin; Z88.8 Allergy status to other drugs, medicaments and biological substances; M25.561 Pain in right knee; Z79.890 Hormone replacement therapy; I26.99 Other pulmonary embolism without acute cor pulmonale; I10 Essential (primary) hypertension; J90 Pleural effusion, not elsewhere classified; T40.2X5A Adverse effect of other opioids, initial encounter